=== PATIENT | female | born 1950 | race Caucasian/White ===

== ENCOUNTER 2017-12-10 09:45 | Emergency (ER) | payer MEDICARE, BC ==
[2017-12-10 10:24] VITALS: BP 146/94
--- NOTE | 2017-12-10 11:09 | UC ---
Hand/Wrist HPI - HPI Summary HPI Summary: 67 y/o female presents to the urgent care c/o RT ring finger pain, swollen w/ mild pus surrounding nail bed s/p dropping and window on RT hand about 2 weeks ago. Pt reports she had a small abrasion around nail, but she thinks it is now infected. Pain at rest is 4/10 and at touch is 7/10. She has soaked in water for the past 2 days and applied Hydrogen Peroxide w/o any improvement. She can move finger w/o any difficulty. Pt denies fever, numbness or tingling sensation , SOB, chest pain, abdominal pain, N/v/D. - History Of Current Complaint Chief Complaint: UCSkin Stated Complaint: FINGER COMPLAINT Time Seen by Provider: 12/10/17 10:48 Hx Obtained From: Patient ?: No - menopausal Onset/Duration: Gradual Onset, Lasting Weeks - 2 weeks injury w/ a glass window , Still Present, Worse Since - last week Severity Initially: Mild Severity Currently: Moderate Pain Intensity: 7 - touch Pain Scale Used: 0-10 Numeric Character Of Pain: Sharp, Dull Aggravating Factor(s): Other - touch Alleviating Factor(s): Rest, OTC Meds, Heat Associated Signs And Symptoms: Positive: Swelling, Redness. Negative: Bruising , Fever, Numbness/Tingling - Allergies/Home Medications Allergies/Adverse Reactions: Allergies Allergy/AdvReac Type Severity Reaction Status Date / Time MS Cephalosporins Allergy Severe Unknown Verified 12/10/17 10:16 [Cephalosporins] Reaction Details MS Clindamycin [Clindamycin] Allergy Anaphylatic Verified 12/10/17 10:16 Shock MS Trimethoprim Allergy Unknown Verified 12/10/17 10:16 [Trimethoprim] Reaction Details MS Erythromycin AdvReac Nausea And Verified 12/10/17 10:16 [Erythromycin] Vomiting MS Morphine [Morphine] AdvReac Nausea And Verified 12/10/17 10:16 Vomiting PMH/Surg Hx/FS Hx/Imm Hx Previously Healthy: Yes Other Neurological History: Cluster Headache - Surgical History Surgical History: Yes Surgery Procedure, Year, and Place: . LOWER LEFT LEG SURGERY. TONSILS AGE 14. ovary removed 2007 - Family History Known Family History: Positive: Hypertension, Diabetes - Social History Occupation: Retired Lives: With Family Alcohol Use: Rare Substance Use Type: None Smoking Status (MU): Former Smoker Review of Systems Constitutional: Negative Skin: Other - Rt ring finger swelling w/ pus Eyes: Negative ENT: Negative Respiratory: Negative Cardiovascular: Negative Gastrointestinal: Negative Genitourinary: Negative Motor: Negative Neurovascular: Negative Musculoskeletal: Other: - Rt ring finger pain s/p injury now infected Neurological: Negative Psychological: Negative Is Patient Immunocompromised?: No All Other Systems Reviewed And Are Negative: Yes Physical Exam - Summary Physical Exam Summary: Vital Signs Reviewed: Yes General: well developed, well nourished female sitting in the examining table w/ o any apparent distress Eye Exam: Normal Eyes: Positive: Conjunctiva Clear - PERRLA, EOMI, fundi grossly normal ENT: Positive: Normal ENT inspection, Hearing grossly normal, Pharynx normal, TMs normal Neck: Positive: Supple, Nontender, No Lymphadenopathy Respiratory: Positive: Chest non-tender, Lungs clear, Normal breath sounds, No respiratory distress Cardiovascular: Positive: RRR, No Murmur, Pulses Normal, Brisk Capillary Refill Abdomen Description: Positive: Nontender, No Organomegaly, Soft. Negative: CVA Tenderness (R), CVA Tenderness (L) Bowel Sounds: Positive: Present Musculoskeletal: Positive: Strength Intact, ROM Intact, No Edema Neurological: Positive: Alert, Muscle Tone Normal Psychological Exam: Normal Skin: Positive: RT # 4 phalanx at the base of nail bed with a discrete erythematous pustule that is indurated and fluctuant, tender to palpation, swollen, and warm to touch about .4cm in size. FROM of phalanx, sensation is intact, capillary refill WNL, reflexes WNL Triage Information Reviewed: Yes Vital Signs: Initial Vital Signs Temp 99 F 12/10/17 10:17 Pulse 81 12/10/17 10:17 Resp 16 12/10/17 10:17 BP 146/94 12/10/17 10:17 Pulse Ox 100 12/10/17 10:17 Hand/Wrist Course/Dx - Course Course Of Treatment: 67 y/o female presents to the urgent care c/o RT ring finger pain, swollen w/ mild pus surrounding nail bed s/p dropping and window on RT hand about 2 weeks ago. Pt reports she had a small abrasion around nail, but she thinks it is now infected. Pain at rest is 4/10 and at touch is 7/10. She has soaked in water for the past 2 days and applied Hydrogen Peroxide w/o any improvement. She can move finger w/o any difficulty. Pt denies fever, numbness or tingling sensation, SOB, chest pain, abdominal pain, N/v/D. Hx obtained. Pt w/ a paronychia of the Rt 4th phalanx on examination.I&D of paronychia procedure:The procedure was explained and consent obtained. [place] protocol performed. Digital block performed at base of of RT 4th phalanx w/ 2 mL of Lido 1% with good anesthesia. Sterile drape and prep were done. The fluctuant center around nail was incised with #11 blade scalpel. A discrete amount of yellowish and bloody discharge was expressed . wound cultures obtained and sent to lab top r/o MRSA. wound was irrigated with normal saline. Bacitracin topical ointment applied and wound covered with sterile dressing. The patient tolerated the procedure well. Pt allegic to Multiple ABx. Pt Rx Doxycycline PO and Bacitraicin Oint. Pt advised fever develops and pain increase despite ABX to go immediately to the ER for further management. D/ C instructions explained. Pt's BP is elevated today advised to decrease salt in diet, monitor BP and f/u with PCP for further management.Pt understood and agreed with D/C instructions. Left the clinic ambulating A&OX3. - Differential Dx/Diagnosis Differential Diagnosis/HQI/PQRI: Abrasion, Cellulitis, Contusion, Felon, Fracture, Infection, Paronychia Provider Diagnoses: 1- Incision and drainage of Rt 4th phalanx paronychia. 2- Elevated BP w/o Hx of HTN Discharge - Sign-Out/Discharge Documenting (check all that apply): Patient Departure - D/C home - Discharge Plan Condition: Stable Disposition: HOME Prescriptions: Bacitracin OINTMENT* 1 applic TOPICAL BID #1 tube Calcium Acetate/Aluminum Sulf [[place] Powder Packet] 1 each TP BID #1 powd.pack DOXYcycline CAP(*) [DOXYcycline 100MG CAP(*)] 100 mg PO BID #14 cap Patient Education Materials: Paronychia (ED), Low-Sodium Diet (ED) Referrals: Alex Zacarias MD [Primary Care Provider] - 2 Days Additional Instructions: 1-Please take full course of antibiotic to avoid resistance. Keep wound clean and dry with a sterile dressing. Apply bacitracin topical as directed 2- Please soak your finger as directed w/ [place] pakts to alleviate symptoms then dry well your finger. Avoid washing dishes until symptoms resolve 3-. Take Ibuprofen PO q6-8hrs prn for pain or swelling. Avoid too much flexion w/ your finger. 4-If you develop fever or redness despite antibiotic please go to the ER immediately or return to the Urgent care. 5- Wound culture sent to lab, if any abnormal result you will receive a call from us. 6-Your BP is elevated today. please decrease salt in your diet, monitor BP and if it continues to be elevated please f/u with your PCP for further management - Billing Disposition and Condition Condition: STABLE Disposition: Home
[2017-12-10] MEDS ORDERED: Lidocaine 1%* 5 ML VIAL INJ ONE (11:22)
== END 2017-12-10 12:20 | disposition home or self-care (01) ==
LOC: UCEAST 09:45
DX: L03.011 Cellulitis of right finger (principal); R03.0 Elevated blood-pressure reading, without diagnosis of hypertension; G44.009 Cluster headache syndrome, unspecified, not intractable; Z88.1 Allergy status to other antibiotic agents; Z88.5 Allergy status to narcotic agent; Z82.49 Family history of ischemic heart disease and other diseases of the circulatory system; Z83.3 Family history of diabetes mellitus; Z87.891 Personal history of nicotine dependence
CPT/HCPCS: 10060; 87070; 87205; 99212; G0463